=== PATIENT | female | born 1960 | race Caucasian/White ===

== ENCOUNTER → 2020-01-31 | Day surgery (SDC) | payer MEDICARE ==
[2020-01-31 07:36] VITALS: RESP 16
[2020-01-31 09:09] VITALS: BP 133/80; PULSE 57; TEMP 97.7
--- NOTE | 2020-01-31 09:54 | MM ---
EXAMINATION TYPE: MG stereo VAD BX RT DATE OF EXAM: 01/31/2020 COMPARISON: Diagnostic bilateral mammography dated 11/25/2019 and MRI breast dated 01/31/2020. CLINICAL HISTORY: Abnormal prior mammogram and MRI at outside institutions TECHNIQUE: Stereotactic guided core biopsy of right breast. FINDINGS: The procedure of stereotactic guided core biopsy was explained to the patient. Benefits, alternatives, and risks were discussed. An informed consent was then obtained. Preprocedural timeout was performed. Preprocedural timeout was performed. Findings were discussed with the patient prior to the procedure including calcifications in association with a focal asymmetry at a similar location to the MRI finding on 01/31/2020. The decision for stereotactic guided biopsy with placement of a biopsy marker and subsequent single sequence MRI to assess for correlation was discussed with the patient as well as the potential need for MRI guided biopsy if biopsy marker discordance is identified. The shortness pathway for biopsy was chosen. Shortness pathway was CC from below approach. Preprocedural localization images were obtained and Central, slightly lower focal asymmetry in association with a 1.1 cm group of calcifications in the right breast at middle depth. Coordinates were calculated. Subsequently 10 cc of lidocaine without epinephrine was utilized to anesthetize the skin and deeper subcutaneous soft tissues. The needle was advanced to the appropriate depth. Prefire images were obtained ensuring appropriate location. Postfire injection of 10 cc of lidocaine with epinephrine was utilized to anesthetize the site of biopsy. A vacuum assisted biopsy gun was used to obtain 9 core samples. The patient tolerated the procedure well without any immediate complication. The patient was kept in the radiology department for short stay after the procedure and then discharged home in stable condition. Targeted calcifications are identified in specimen mammogram. Post biopsy mammogram shows the T-shaped biopsy marker to have migrated relative to the obtained calcifications in comparison to the MLO and CC views from the prior 11/25/2019. There appears to be caudal migration of the biopsy marker 2.4 cm, anterior migration 1.0 cm and medial migration 0.9 cm relative to the biopsied calcifications. On CC view procedural air is located directly over the focal asymmetry and calcifications or absent (removed from the biopsy) at the expected location of the biopsy marker. IMPRESSION: SUCCESSFUL STEREOTACTIC GUIDED CORE BIOPSY OF A RIGHT BREAST FOCAL ASYMMETRY WITH ASSOCIATED CALCIFICATIONS, HOWEVER BIOPSY MARKER MIGRATION IS SEEN DISCUSSED ABOVE FULL PATHOLOGY RESULTS TO FOLLOW. 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 See Surgical Pathology Cancer Case Summary and Comment. Recommendation Surgical consult of the right breast. MTDD
--- NOTE | 2020-01-31 11:10 | BMR ---
EXAMINATION TYPE: MR breast RT wo con DATE OF EXAM: 01/31/2020 COMPARISON: Outside MRI dated 12/06/2019 and stereotactic guided biopsy dated 02/12/2020 as well as lorin gnostic mammogram dated 11/25/2019 from an outside institution. HISTORY: Suspicious right breast enhancement on outside MRI. TECHNIQUE: Single sequence T1-weighted nonfat sat axial imaging was performed for biopsy marker local ization within the right breast with left and right breast sagittal imaging reconstructed. FINDINGS: The biopsy marker appears at the same depth as the outside MRI breast mass seen on 0 measuring approximately 5.7 cm in the nipple on the current exam versus 5.6 cm in the nipple on the prior exam. This also is located at the level of the nipple, where the abnormality was seen on the p rior outside MRI. On the postprocedural images from a stereotactic guided biopsy of 01/31/2020 however the biopsy marker was noted to have migrated. Therefore given the MRI findings in combination with a stereotactic guided biopsy and postprocedure mammogram findings two site mammographic needle localiza tion is recommended of the biopsy marker and of the residual calcifications. IMPRESSION: BI-RADS 4-suspicious abnormality. Two site mammographic guided needle localization recommended as dis cussed above and on the stereotactic guided biopsy of the same date.
== END ==
LOC: RADMAMWWP 07:08
PROVIDERS: ATTEND Surgery
DX: C50.911 Malignant neoplasm of unspecified site of right female breast (principal); Z17.0 Estrogen receptor positive status [ER+]
CPT/HCPCS: 19081; 77046; A4648; J2001; 88305; 88341; 88342